=== PATIENT | female | born 2000 | race Two or more races ===

== ENCOUNTER 2020-09-16 17:42 | Emergency (ER) | payer OTHER ==
[~2020-09-16] VITALS: Ht 157.5 cm; Wt 56.8 kg
[2020-09-16 20:04] VITALS: BP 106/68
== END 2020-09-16 20:06 ==
LOC: EMS 17:42
DX: Z11.1 Encounter for screening for respiratory tuberculosis (principal); Z02.89 Encounter for other administrative examinations
CPT/HCPCS: 99283; 71046; 71046-TC